=== PATIENT | female | born 1940 | race Caucasian/White ===

== ENCOUNTER 2018-12-07 10:52 | Day surgery (SDC) | payer OTHER ==
[2018-12-07] MEDS: LIDOCAINE 1% (MPF) 5 ML VIAL (12:52)
== END 2018-12-07 16:39 | disposition home or self-care (01) ==
LOC: SDS 10:52
DX: J90 Pleural effusion, not elsewhere classified (principal)
CPT/HCPCS: 32555; 71045; 88104; 88305